=== PATIENT | female | born 1960 | race Caucasian/White ===

== ENCOUNTER → 2017-04-21 | Outpatient (CLI) | payer OTHER | END | disposition home or self-care (01) | LOC: CFH 13:01 | DX: Z12.31 Encounter for screening mammogram for malignant neoplasm of breast (principal); N61.0 Mastitis without abscess | CPT/HCPCS: G0202 ==

== ENCOUNTER → 2018-07-20 | Outpatient (CLI) | payer BC | END | disposition home or self-care (01) | LOC: CFH 07-05 10:35 | PROVIDERS: ATTEND Nurse Practitioner Family | DX: Z12.31 Encounter for screening mammogram for malignant neoplasm of breast (principal) | CPT/HCPCS: 77063; 77067 ==